=== PATIENT | female | born 1985 | race Caucasian/White ===

== ENCOUNTER 2020-05-31 10:27 | Emergency (ER) | payer MEDICAID, OTHER ==
--- NOTE | 2020-05-31 10:35 | EDM.PDOC ---
ED HPI GENERAL MEDICAL PROBLEM - General Chief Complaint: Genitourinary Problem Stated Complaint: STD Time Seen by Provider: 05/31/20 10:33 Source of Information: Reports: Patient, Old Records, RN, RN Notes Reviewed History Limitations: Reports: No Limitations - History of Present Illness INITIAL COMMENTS - FREE TEXT/NARRATIVE: Pt presents to ER with c/o that she [facility] a [facility] [place] that she was positive for gonorrhea. Pt c/o vaginal discharge. Denies any other complaints. Pt is very anxious and agitated, stating that knowing that she is infected with STD again is making her feel "mental". Denies suicidal or homicidal thoughts. Onset: Unknown/Unsure - Related Data Allergies Allergy/AdvReac Type Severity Reaction Status Date / Time No Known Allergies Allergy Verified 05/31/20 10:36 Home Meds: Home Meds Omeprazole 20 mg PO DAILY 08/30/19 [History] Past Medical History - Past Health History Medical/Surgical History: Denies Medical/Surgical History HEENT History: Reports: Impaired Vision, Other (See Below) Other HEENT History: wears glasses Cardiovascular History: Reports: None Respiratory History: Reports: None Gastrointestinal History: Reports: None Genitourinary History: Reports: STD [employer] History: Reports: None Musculoskeletal History: Reports: None Neurological History: Reports: None Psychiatric History: Reports: None Endocrine/Metabolic History: Reports: None Hematologic History: Reports: Other (See Below) Other Hematologic History: "Hemolitic Anemia Disorder" Immunologic History: Reports: None Oncologic (Cancer) History: Reports: None Dermatologic History: Reports: None - Infectious Disease History Infectious Disease History: Reports: Hepatitis C - Past Surgical History Head Surgeries/Procedures: Reports: None HEENT Surgical History: Reports: None Cardiovascular Surgical History: Reports: None Respiratory Surgical History: Reports: None GI Surgical History: Reports: None Female Surgical History: Reports: Tubal Ligation Endocrine Surgical History: Reports: None Neurological Surgical History: Reports: None Musculoskeletal Surgical History: Reports: Other (See Below) Other Musculoskeletal Surgeries/Procedures:: knee sx Oncologic Surgical History: Reports: None Dermatological Surgical History: Reports: None Social & Family History - Family History Family Medical History: Noncontributory - Caffeine Use Caffeine Use: Reports: None - Living Situation & Occupation Living situation: Reports: with Family ED ROS GENERAL - Review of Systems Review Of Systems: Comprehensive ROS is negative, except as noted in HPI. ED EXAM, RENAL/ - Physical Exam Exam: See Below Exam Limited By: No Limitations General Appearance: Alert, WD/WN, No Apparent Distress, Anxious Nose: Normal Inspection Throat/Mouth: Normal Inspection Head: Atraumatic, Normocephalic Neck: Normal Inspection Respiratory/Chest: No Respiratory Distress Cardiovascular: Regular Rate, Rhythm, Tachycardia GI/Abdominal: Normal Bowel Sounds, Soft, Non-Tender Rectal (Female) Exam: Deferred, Other (UA obtained for STD screen) Extremities: Normal Inspection. No: Joint Swelling Neurological: Alert, Oriented, No Motor/Sensory Deficits Psychiatric: Anxious Skin Exam: Warm, Dry, Intact, Normal Color, No Rash Course - Vital Signs Last Recorded V/S: Last Vital Signs Temp 97.6 F 05/31/20 10:36 Pulse 110 H 05/31/20 10:36 Resp 16 05/31/20 10:36 BP 137/80 05/31/20 10:36 Pulse Ox 96 05/31/20 10:36 - Orders/Labs/Meds Orders: Active Orders 24 hr Category Date Time Status CHLAMYDIA AND GONORRHEA BY TMA Routine Lab 05/31/20 10:35 Ordered HCG QUALITATIVE,URINE [URCHEM] Stat Lab 05/31/20 10:35 Ordered UA RFX DIMITRIOS AND CULT IF INDIC [URIN] Stat Lab 05/31/20 10:35 Ordered Meds: Medications Discontinued Medications Generic Name Dose Route Start Last Admin Trade Name Freq PRN Reason Stop Dose Admin Azithromycin 1,000 mg 05/31/20 10:37 Zithromax PO 05/31/20 10:38 ONETIME ONE Ceftriaxone Sodium 1 gm/ 0 gm 05/31/20 10:36 Lidocaine HCl 2.1 ml IM 05/31/20 10:37 ONETIME ONE Departure - Departure Time of Disposition: 10:42 Disposition: Home, Self-Care 01 Condition: Good Clinical Impression: Exposure to STD - Discharge Information *PRESCRIPTION DRUG MONITORING PROGRAM REVIEWED*: Not Applicable *COPY OF PRESCRIPTION DRUG MONITORING REPORT IN PATIENT SARAY: Not Applicable Instructions: Sexually Transmitted Disease, [id number] Forms: ED Department Discharge Additional Instructions: No sexual activity until rechecked in clinic in 7 to 10 days. Rx: Metronidazole 500mg Drink plenty of water. Sepsis Event Note (ED) - Focused Exam Vital Signs: Vital Signs Temp Pulse Resp BP Pulse Ox 05/31/20 10:36 97.6 F 110 H 16 137/80 96 - My Orders Last 24 Hours: My Active Orders 05/31/20 10:35 CHLAMYDIA AND GONORRHEA BY TMA Routine HCG QUALITATIVE,URINE [URCHEM] Stat UA RFX DIMITRIOS AND CULT IF INDIC [URIN] Stat - Assessment/Plan Last 24 Hours: My Active Orders 05/31/20 10:35 CHLAMYDIA AND GONORRHEA BY TMA Routine HCG QUALITATIVE,URINE [URCHEM] Stat UA RFX DIMITRIOS AND CULT IF INDIC [URIN] Stat
[2020-05-31] MEDS ORDERED: cefTRIAXone 1 GM, Lidocaine 1% 2.1 ML IM ONE ×2 (10:36)
[2020-05-31] MEDS ORDERED: Azithromycin 250 MG Tab PO ONE (10:37)
== END 2020-05-31 10:52 | disposition home or self-care (01) ==
LOC: DL.ED 10:27
DX: Z20.2 Contact with and (suspected) exposure to infections with a predominantly sexual mode of transmission (principal); Z79.899 Other long term (current) drug therapy
CPT/HCPCS: 81001; 81025; 87086; 87088; 87186; 96372; 99283; A9270; J0696; J2001